=== PATIENT | female | born 1940 | race Caucasian/White ===

== ENCOUNTER 2017-01-05 16:41 | Emergency (ER) | payer MEDICARE ==
[~2017-01-05 16:41] MED LIST: Sodium Chloride 0.9% 1,000 ML BAG ONE
[2017-01-05 17:58] LABS: #Eosinphils 0.1 thou/uL (0.0-0.7); #Lymphocytes 1.2 thou/uL (1.20-3.40); #Monocytes 0.5 thou/uL (0.11-0.59); #Neutrophils 4.6 thou/uL (1.40-6.50); %Basophils 0.6 % (0.0-1.0); %Eosinophils 1.7 % (0.0-10.0); %Lymphocytes 19.1 % (21.0-51.0); %Monocytes 7.2 % (0.0-10.0); %Neutrophils 71.4 % (42.0-75.0); Hemoglobin 14.6 g/dL (12.0-16.0); Mean Corpuscular HGB CONC 32.9 g/dL (32.0-36.0); Mean Corpuscular Hemoglobin 30.1 pg (27.0-31.0); Mean Corpuscular Volume 91.5 fl (81.0-99.0); Mean Platelet Volume 6.8 fL (7.4-10.4); Platelet Count 343 thou/uL (130-400); RBC Distribution Width 12.2 % (11.5-14.5); Red Blood Cell (RBC) Count 4.86 mill/uL (4.20-5.40); White Blood Cell (WBC) Count 6.5 thou/uL (4.8-10.8)
[2017-01-05 18:13] LABS: ALT (SGPT) 27 U/L (0-55); AST (SGOT) 29 U/L (5-34); Albumin 3.9 g/dL (3.4-4.8); Alkaline Phosphatase 72 U/L (40-150); Anion Gap 22 mmol/L (10-20); BUN (Urea Nitrogen) 36 mg/dL (9.8-20.1); Bilirubin, Total 0.5 mg/dL (0.2-1.2); CK (CPK) 59 U/L (29-168); Calc. Creatinine Clearance 0 mL/min (70-130); Calcium 9.9 mg/dL (7.8-10.44); Carbon Dioxide 27 mmol/L (23-31); Chloride 90 mmol/L (98-107); Estimated GFR-MDRD 43; Protein, Total 6.9 g/dL (5.8-8.1); Sodium 135 mmol/L (136-145)
[2017-01-05 18:14] LABS: Troponin I 0.101 ng/mL (< 0.028)
[2017-01-05 18:16] LABS: Glucose 590 mg/dL (83-110)
--- NOTE | 2017-01-05 18:26 | CT ---
CT HEAD WITHOUT CONTRAST: 01/05/17 Multiple tomograms obtained through the head without IV enhancement. HISTORY: Mental status change. The ventricles have normal size and position. There is no evidence of acute mass or infarct. No evid ence of hemorrhage. Moderate chronic ischemic white matter changes are seen. Sinuses show mucosal ed armida in the ethmoid air cells. IMPRESSION: 1. No acute infract or hemorrhage. 2. Chronic ischemic white matter changes. 3. Mucosal edema in the ethmoid air cells. POS: [facility]
--- NOTE | 2017-01-05 18:27 | RAD ---
PORTABLE CHEST: 01/05/17 HISTORY: Mental status change. Heart is mildly enlarged with postop sternotomy changes and transvenous pacemaker leads. Mild vascul ar engorgement. Some interstitial prominence may represent mild engorgement. No focal infiltrate or effusion seen. Prominent aortic calcification is noted. IMPRESSION: No focal infiltrate. The heart is mildly enlarged and there is mild vascular engorgement. POS: [facility]
[2017-01-05 19:18] LABS: Base Excess 5.6 mEq/L (-2 - +2); Hemoglobin (Hb) 13.9 g/dL (11.7-16.1)
[2017-01-05 19:33] LABS: Bilirubin Negative (Negative); Blood, Urine Small (Negative); Glucose, Urine (Dipstick) >=1000 mg/dL (Negative); Leukocyte Negative (Negative); Nitrite Negative (Negative); Protein, Urine (Dipstick) > or equal to 300 mg/dL (Neg-Trace); Urobilinogen 0.2 mg/dL (0.2-1.0)
[2017-01-05 19:36] LABS: Clarity Cloudy (Clear)
[2017-01-05 19:39] LABS: Bacteria/HPF 2+ HPF (None Seen); RBC/HPF 0-3 HPF (0-3); Yeast-All Forms Rare HPF (None Seen)
== END 2017-01-05 22:45 | disposition short-term general hospital (02) ==
LOC: MADERS 16:41
DX: E11.65 Type 2 diabetes mellitus with hyperglycemia (principal); R79.89 Other specified abnormal findings of blood chemistry; E78.5 Hyperlipidemia, unspecified; E78.00 Pure hypercholesterolemia, unspecified; I10 Essential (primary) hypertension; Z79.84 Long term (current) use of oral hypoglycemic drugs; Z79.4 Long term (current) use of insulin; Z79.899 Other long term (current) drug therapy
CPT/HCPCS: 36416; 70450; 71010; 80053; 81003; 81015; 82553; 82805; 84484; 85025; 93005; 96372; 36415-59; J7050

== ENCOUNTER 2018-07-21 14:17 | Outpatient (CLI) | payer MEDICARE ==
[2018-07-21 14:55] LABS: Bilirubin Negative (Negative); Blood, Urine Large (Negative); Glucose, Urine (Dipstick) >=1000 mg/dL (Negative); Leukocyte Trace (Negative); Nitrite Negative (Negative); Protein, Urine (Dipstick) > or equal to 300 mg/dL (Neg-Trace); Specific Gravity, Urine 1.015 (1.005-1.030); Urobilinogen 0.2 mg/dL (0.2-1.0); pH, Urine 5.5 (5.0-9.0)
[2018-07-21 15:09] LABS: Clarity Cloudy (Clear)
== END 2018-07-21 14:18 | disposition home or self-care (01) ==
LOC: MADLAB 14:17
DX: R30.0 Dysuria (principal)
CPT/HCPCS: 81003; 87077; 87086; 87186